=== PATIENT | male | born 1945 | race Caucasian/White ===

== ENCOUNTER 2022-04-02 14:30 | Emergency (ER) | payer MEDICARE, OTHER ==
[~2022-04-02] VITALS: Ht 170.2 cm; Wt 85.8 kg
[2022-04-02 15:46] VITALS: BP 141/27
[2022-04-02] MEDS ORDERED: HYDROcodone-ACET 10/325MG TAB PO ONE (16:00)
[2022-04-02] MEDS ORDERED: MELO1TAB56 PO (18:15)
[2022-04-02] MEDS ORDERED: HYDR-4902 PO (18:15)
== END 2022-04-02 18:24 | disposition home or self-care (01) ==
LOC: ER 14:30
DX: M16.11 Unilateral primary osteoarthritis, right hip (principal)
CPT/HCPCS: 72192

== ENCOUNTER 2022-10-14 13:58 | Emergency (ER) | payer MEDICARE, OTHER ==
[~2022-10-14] VITALS: Ht 167.6 cm; Wt 84.4 kg
[~2022-10-14 13:58] MED LIST: HYDR-4902 PO; MELO-335 PO
[2022-10-14 14:30] LABS: Urine WBC None Seen /hpf (0 - 3)
[2022-10-14 15:02] LABS: Urine Bacteria NONE SEEN /hpf (None Seen); Urine Blood Negative /uL (Negative); Urine Clarity Clear (Clear); Urine Color Yellow (Yellow); Urine Protein, UAD 1+ (Negative); Urine Specific Gravity 1.022 (1.001-1.035); Urine Urobilinogen Normal (Negative)
[2022-10-14] MEDS ORDERED: SODIUM CHLORIDE 0.9% 1,000 ML IV ONE (16:30)
[2022-10-14 17:00] LABS: Basophils # (auto) 0.1 10 ^3/uL (0-0.2); Eosinophils # (auto) 0.3 10 ^3/uL (0-0.8); Hemoglobin 18.9 g/dL (13.5-17.5); Monocytes # (auto) 0.5 10 ^3/uL (0-1.3); Red Cell Distribution Width 14.9 % (11.8-14.3)
[2022-10-14] MEDS ORDERED: cefTRIAXone 1GM/50ML D5W 50 ML IV ONE (17:00)
[2022-10-14] MEDS ORDERED: KETOROLAC TROMETH 30 MG/ML 1ML VIAL IV ONE (17:00)
[2022-10-14 17:02] LABS: Basophils % (auto) 1.1 % (0.0-2.0); Eosinophils % (auto) 3.3 % (0.0-7.0); Hematocrit 54.8 % (41.0-53.0); Lymphocytes # (auto) 1.5 10 ^3/uL (0.4-5.4); Lymphocytes % (auto) 17.3 % (10.0-50.0); Mean Corpuscular Hemoglobin 29.2 pg (28.0-32.0); Mean Corpuscular Hgb Conc. 34.5 g/dL (32.0-36.0); Mean Corpuscular Volume 84.6 fL (80.0-100.0); Monocytes % (auto) 5.9 % (0.0-12.0); Neutrophils # (auto) 6.1 10 ^3/uL (1.6-8.6); Neutrophils % (auto) 72.4 % (37.0-80.0); Nucleated Red Blood Cells % 0.1 %; Red Blood Cells 6.47 10^6/uL (4.5-5.90); White Blood Cell 8.4 10^3/uL (4.4-10.8)
[2022-10-14 17:16] LABS: Albumin 3.9 g/dL (3.4-5.0); Calcium 8.6 mg/dL (8.5-10.1); Potassium 4.4 mmol/L (3.5-5.1)
[2022-10-14] MEDS ORDERED: IBU600T PO (17:16)
[2022-10-14 17:20] LABS: BUN/Creatinine Ratio 19.8 (10.0-20.0); Bilirubin, Total 0.6 mg/dL (0.2-1.0); Total Protein 7.6 g/dL (6.4-8.2)
[2022-10-14 18:03] VITALS: BP 137/87; TEMP 97.6
[2022-10-14 18:44] VITALS: PULSE 91; RESP 18; O2SAT 90
== END 2022-10-14 19:01 | disposition home or self-care (01) ==
LOC: ER 13:58
DX: R10.9 Unspecified abdominal pain (principal); R73.9 Hyperglycemia, unspecified; M54.9 Dorsalgia, unspecified
CPT/HCPCS: 36415; 74176; 80053; 81001; 82962; 84484; 85025; 96361; 96365; 96375; 99285; J0696; J1885; J7030

== ENCOUNTER 2022-10-27 17:00 | Emergency (ER) | payer OTHER ==
[~2022-10-27] VITALS: Ht 170.2 cm; Wt 78.3 kg
[~2022-10-27 17:00] MED LIST changes: +IBU600T PO
[2022-10-27] MEDS ORDERED: ALPRAZolam 0.5 MG TAB PO ONE (17:30)
[2022-10-27] MEDS ORDERED: ALPR0.5T PO (19:29)
[2022-10-27 19:41] VITALS: BP 147/89; PULSE 100; RESP 17; TEMP 99.4; O2SAT 95
== END 2022-10-27 19:44 | disposition home or self-care (01) ==
LOC: ER 17:00
DX: F41.9 Anxiety disorder, unspecified (principal); T50.905A Adverse effect of unspecified drugs, medicaments and biological substances, initial encounter; E11.9 Type 2 diabetes mellitus without complications; I10 Essential (primary) hypertension; Y92.9 Unspecified place or not applicable

== ENCOUNTER 2022-11-16 15:48 | Emergency (ER) | payer OTHER ==
[~2022-11-16] VITALS: Ht 167.6 cm; Wt 77.2 kg
[~2022-11-16 15:48] MED LIST changes: +ALPR0.5T PO
[2022-11-16 16:08] VITALS: BP 148/88; RESP 18; TEMP 98.2; O2SAT 96
[2022-11-16 16:13] VITALS: PULSE 96
[2022-11-16] MEDS ORDERED: BUSP1TAB57 PO ×2 (17:36)
[2022-11-16] MEDS ORDERED: BUSP7.5T8 PO (17:47)
== END 2022-11-16 17:46 | disposition home or self-care (01) ==
LOC: ER 15:48
DX: F41.9 Anxiety disorder, unspecified (principal); I10 Essential (primary) hypertension; E11.9 Type 2 diabetes mellitus without complications; Z79.1 Long term (current) use of non-steroidal anti-inflammatories (NSAID); Z79.899 Other long term (current) drug therapy
CPT/HCPCS: 93005